=== PATIENT | male | born 1955 | race Caucasian/White ===

== ENCOUNTER 2024-06-16 14:54 | Emergency (ER) | payer MEDICARE, OTHER ==
[2024-06-16 14:57] VITALS: BP 0/0; PULSE 0; RESP 0; O2SAT 0
--- NOTE | 2024-06-16 15:26 | ED.PDOC ---
CPR-HPI HPI Comments Joshua Abbott is a 69 year old male patient who presents to the ED via EMS due to cardiac arrest. Per EMS patient was found in post acute care facility ([facility]) unresponsive with no pulse, required 30 minutes of CPR including ET intubation on site and five epinephrine, obtaining in satellite project site monitor asystole and PEA. Spoke with power contracts attorney (jah, Zoey) who mentioned patient has been hospice for the past seven years, recently presented left hip fracture with requirement of surgery complicated with infection of surgical site, for this reason patient was discharged to post acute care facility for PT rehabilitation. Per niece patient recently Sunday more short of breath and congested in the past few days. No review of system was obtained due to clinical status. 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, COPD (brief smoking approximately two years ago), left hip fracture status postop complicated with infection of surgical site, 11/2023 PCI with placement of four stents Time Seen by MD: 15:07 Physical Exam Exam Comments Patient evaluated on arrival, continued with absent pulses, asystole on satellite project site monitor General Appearance: Other () HEENT: Other (Pupils fixed and mildly dilated) Neck: NOT DONE Respiratory: Other (After intubation in ED, breath sounds presents in lung osorio) Cardiovascular: Other (Absent heart sounds) Breast Exam: Deferred Gastrointestinal: NOT DONE Genitalia: Deferred Pelvic: Deferred Rectal: Deferred Extremities: Other (IO present in three left tibia) Neurologic: NOT DONE () Cerebellar Function: NOT DONE Reflexes: NOT DONE Skin: Other () Lymphatic: NOT DONE EKG EKG : Comments monitor technician shows asystole and three pulse checks Was a procedure done? Was a procedure done?: Yes Sedation Sedation?: No Intubation Indication: Respiratory Insufficiency, Altered Mental Status, Airway Protection Prep: Other (Cardiac arrest) Pretreated with: Nothing Medicated with: Nothing Intubation Approach: Orotracheal Intubation size: cm (8) Informed consent obtained: No Risks/benefits/alt described: No UTO Consent Patient arrived to ED due to cardiac arrest. No consents were obtained. EMS student completed orotracheal intubation under supervision of Dr. Laughlin. Abundant purulent secretion present. Differential Dx CPR Differential Diagnosis: Cardiopulmonary arrest, Cardiogenic shock, Dysrhythmia, Electrolyte disorder, Myocardial Infarction, Pneumothorax, Pulmonary Embolus, Respiratory Failure Other Differential Diagnosis Probable cause of cardiac arrest hypoxemia X-Ray, Labs, Meds, VS Vital Signs Date Time Temp Pulse Resp B/P (MAP) Pulse Ox O2 Delivery O2 Flow Rate FiO2 06/16/24 14:57 95.7 0 0 0/0 (0) 0 Time of 1ST Reevaluation: 15:03 Reevaluation 1ST: Time of Patient Education/Counseling: Diagnosis, Treatment, Other () Family Education/Counseling: Diagnosis, Treatment Departure 1 Departure Time of Disposition: 15:03 Impression: Primary Impression: Cardiac arrest Additional Impressions: Acute respiratory distress Hypoxemia COPD (chronic obstructive pulmonary disease) Disposition: 20 Condition: Other () Additional Instructions: Patient presented cardiac arrest requiring 40 minutes of CPR with persistent pulselessness and asystole evidence on satellite project site monitor in each pulse check. Total of eight epinephrine were given (three on site), and also administered in ED one amp of bicarbonate and one amp of 50% dextrose due to hypoglycemia. Time of 1503hs. Causes 1. Cardiac arrest 2. Hypoxemia 3. Aspiration pneumonia Critical Care Note Critical Care Time?: No Heart Score Heart Score: Heart Score Response (Comments) Value History N/A 0 EKG N/A 0 Age N/A 0 Risk Factors N/A 0 Troponin N/A 0 Total 0 Stability Stability form required: ANNA Collins RESIDENT Jun 16, 2024 15:26
--- NOTE | 2024-06-16 17:55 | RESUS ---
CODE BLUE ASSESSSMENT History of Events History of Events: Patient brought to ER via EMS as a secure code blue. Per EMS, patient resides at nursing care facility as was last seen normal at approximately 1100. Patient found unresponsive and in asystole by staff whom started cpr prior to EMS arrival. EMS continued CPR with SOCRATES device until ER arrival. Total of 5 epi given with no cardiac rhythm change Initial Information Date: Jun 16, 2024 Time: 14:54 Location of Arrest: In Field Arrest Witnessed: No CPR started by whom: Bystander Pre-Hospital Care: ACLS Type of arrest: Cardiac, Respiratory Spontaneous Respirations: No Pulse Present: No Monitoring: Pulse Oximetry, Capnography, Telemetry Crash Cart Opened and Supplies: Yes Airway Ventilation Breathing at Onset: Assisted Oxygen Delivery Method: Ambu-Bag Artificial Ventilation: Bag/Endo tube Intubation Size: 7.5 cuffed Intubated by: ems Intubation Attempts: 1 Intubated orally: Yes Comments: Upon arrival to ER, Endo tube was pulled by Dr Laughlin whom confirmed inappropraite placement. Dr Laughlin reintubated at 1456 on 1st attempt 7.5 22 at the lip. Confirmed with color change and auscultation Circulation Circulation #1: Time: 14:56 Circulation Comment: asystole Circulation #2: Time: 14:58 Circulation Comment: asystole Circulation #3: Time: 15:00 Circulation Comment: asystole Circulation #4: Time: 15:02 Circulation Comment: asystole Procedure - IV Procedure - IV : IV start time: 14:57 IV Location: Hand IV Catheter Type: Peripheral IV IV Placed: In Hospital IV Placed by MELVIN Jaramillo IV Gauge: 20 IV Line Care: Saline Flush Procedure - Intraosseous Site of Intraosseous: Tibia keshia-medial Intraosseous inserted by: EMS prior to ER arrival Medications & Response Medications and Responses #1: Medication Time: 14:56 ADULT Medications Given ADULT: Epinephrine 1 mg, Sodium Bacarbinate 50 meq Route of Administration: IO EKG Rhythm: Asystole Medications and Responses #2: Medication Time: 14:57 ADULT Medications Given ADULT: D50 (amp) Route of Administration: IV Medication Comment: accu check 48 recheck after medication 42 at 1500 EKG Rhythm: Asystole Medications and Responses #3: Medication Time: 14:59 ADULT Medications Given ADULT: Epinephrine 1 mg Route of Administration: IV EKG Rhythm: Asystole Pacing Pacer Pads Applied and Pacing: No Nurses Notes Ilan Coma Scale Eye Opening: None (1) [place] Coma Scale Verbal: None (1) [place] Coma Scale Motor: None (1) [place] Total: 3 Bedside Blood Glucose: 48 Time Code Ended Time Code Ended: 15:03 Post Arrest Status: Outcome of code: Unsuccessful Patient pronounced by: Dr Laughlin/ Dr Pearson Time patient pronounced: 15:03 Family notified: Yes Code Team Present: Dr Qian Espinoza RT Olga Dixon Jun 16, 2024 17:55
== END 2024-06-16 18:29 ==
LOC: EDSEX 14:54 → ER 14:54 → EDBD 14:54 → ER 18:29
DX: I46.9 Cardiac arrest, cause unspecified (principal); R09.02 Hypoxemia; R06.03 Acute respiratory distress; J44.9 Chronic obstructive pulmonary disease, unspecified; I25.2 Old myocardial infarction; Z86.73 Personal history of transient ischemic attack (TIA), and cerebral infarction without residual deficits
CPT/HCPCS: 31500; 82947; 92950